=== PATIENT | male | born 1935 | race Caucasian/White ===

== ENCOUNTER 2017-09-22 09:12 | Emergency (ER) | payer OTHER, BC ==
[~2017-09-22] VITALS: Ht 175.3 cm; Wt 63.5 kg
--- NOTE | ~2017-09-22 | EKG ---
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: [facility] : 1935 Requested By: Malini Cisneros Order Number: [id number] MD: Van Taylor Measurements Intervals [place] Rate: 78 P: -36 NJ: 220 QRS: -33 QRSD: 112 T: 48 QT: 388 QTc: 442 Interpretive Statements Sinus rhythm Prolonged [place] interval Incomplete left bundle branch block Anterior Q waves, possibly due to ILBBB Compared to ECG 06/03/1999 11:05:39 First degree AV block now present Left bundle-branch block now present Q waves now present Sinus bradycardia no longer present Electronically Signed On 09-22-2017 16:31:48 CDT by Van Taylor [email or web address] <ELECTRONICALLY SIGNED> By: Van Taylor MD, [facility] 09/22/17 1631 0932 0932 Van Taylor MD, [facility] /EPI
[2017-09-22] MEDS ORDERED: ASPIR 8181 MG PO (09:22)
[2017-09-22] MEDS ORDERED: ACCUNEB SO1.25 MG/1 INH (09:22)
[2017-09-22] MEDS ORDERED: ATORVASTATIN CA40 MG PO (09:23)
[2017-09-22] MEDS ORDERED: TUMS PO (09:24)
[2017-09-22] MEDS ORDERED: CALCIUM 600 +1 EAC1 PO (09:24)
[2017-09-22] MEDS ORDERED: COLACE100 MG PO (09:25)
[2017-09-22] MEDS ORDERED: ADVAIR HFA 230M12 GM INH (09:25)
[2017-09-22] MEDS ORDERED: PRESERVISION T1 EACH PO (09:26)
[2017-09-22] MEDS ORDERED: CENTRUM SILVER1 EAC2 PO (09:26)
[2017-09-22] MEDS ORDERED: MIRALAX17 GM PO (09:27)
[2017-09-22] MEDS ORDERED: FISH OIL 1,001000 M2 PO (09:27)
[2017-09-22] MEDS ORDERED: QUINAPRIL HCL40 MG PO (09:28)
[2017-09-22 09:33] LABS: ABSOLUTE NEUTROPHILS 7.8 thou/uL (1.4-8.2); BASOPHILS 0.6 % (0.0-2.0); EOSINOPHILS 2.2 % (0.0-3.0); HEMATOCRIT 35.1 % (42.0-52.0); HEMOGLOBIN 11.6 gm/dL (14.0-18.0); LYMPHOCYTES 10.1 % (24.0-44.0); MCH 28.6 pg (26.0-34.0); MCHC 33.1 g/dL (28.0-37.0); MCV 86.3 fL (80.0-100.0); MONOCYTES 8.1 % (1.0-8.0); PLATELET COUNT 153 thou/uL (150-400); RBC 4.07 mil/uL (4.50-6.00); RDW 14.6 % (10.5-14.5); WBC 9.9 thou/uL (4.0-11.0)
[2017-09-22 09:40] LABS: ANION GAP 0 mmol/L (7-16); BUN 16 mg/dL (7-18); CALCIUM 9.2 mg/dL (8.5-10.1); CHLORIDE 106 mmol/L (98-107); CO2 31 mmol/L (21-32); CREATININE 0.8 mg/dL (0.7-1.3); GLUCOSE 91 mg/dL (74-106); SODIUM 137 mmol/L (136-145)
[2017-09-22 09:49] LABS: TROPONIN-I <0.06 ng/mL (<0.06)
[2017-09-22 11:15] VITALS: BP 110/56
== END 2017-09-22 11:17 | disposition home or self-care (01) ==
LOC: ER 09:12
PROVIDERS: Emergency Medicine
DX: R55 Syncope and collapse (principal); I25.2 Old myocardial infarction; Z91.02 Food additives allergy status

== ENCOUNTER → 2019-07-02 | Outpatient (CLI) | payer OTHER, BC ==
[~2019-07-02] MED LIST: ACCUNEB SO1.25 MG/1 INH; ADVAIR HFA 230M12 GM INH; ASPIR 8181 MG PO; ATORVASTATIN CA40 MG PO; CALCIUM 600 +1 EAC1 PO; CENTRUM SILVER1 EAC2 PO; COLACE100 MG PO; FISH OIL 1,001000 M2 PO; MIRALAX17 GM PO; PRESERVISION T1 EACH PO; QUINAPRIL HCL40 MG PO; TUMS PO
== END ==
LOC: SJCVCIMAG 10:46 → SJCVC 10:46
PROVIDERS: ATTEND Internal Medicine Cardiovascular Disease
DX: R94.31 Abnormal electrocardiogram [ECG] [EKG] (principal); I25.10 Atherosclerotic heart disease of native coronary artery without angina pectoris; I65.23 Occlusion and stenosis of bilateral carotid arteries; I10 Essential (primary) hypertension; E78.00 Pure hypercholesterolemia, unspecified; R55 Syncope and collapse; E78.5 Hyperlipidemia, unspecified; Z79.82 Long term (current) use of aspirin; Z79.899 Other long term (current) drug therapy; Z87.891 Personal history of nicotine dependence

== ENCOUNTER → 2020-02-04 | Outpatient (CLI) | payer OTHER, BC | LOC: SJCVC 10:27 | PROVIDERS: ATTEND Internal Medicine Cardiovascular Disease | DX: I25.10 Atherosclerotic heart disease of native coronary artery without angina pectoris (principal); R94.31 Abnormal electrocardiogram [ECG] [EKG]; I65.23 Occlusion and stenosis of bilateral carotid arteries; I10 Essential (primary) hypertension; E78.00 Pure hypercholesterolemia, unspecified; Z95.5 Presence of coronary angioplasty implant and graft; Z79.899 Other long term (current) drug therapy; Z87.891 Personal history of nicotine dependence ==

== ENCOUNTER → 2020-12-09 | Outpatient (CLI) | payer OTHER, BC | LOC: SJCVCIMAG 09:10 | PROVIDERS: ATTEND Internal Medicine Cardiovascular Disease | DX: R94.31 Abnormal electrocardiogram [ECG] [EKG] (principal); I49.1 Atrial premature depolarization; I65.23 Occlusion and stenosis of bilateral carotid arteries; I45.89 Other specified conduction disorders; I25.10 Atherosclerotic heart disease of native coronary artery without angina pectoris; I10 Essential (primary) hypertension; E78.00 Pure hypercholesterolemia, unspecified; Z87.891 Personal history of nicotine dependence; Z79.82 Long term (current) use of aspirin; Z79.899 Other long term (current) drug therapy; Z91.02 Food additives allergy status; Z91.09 Other allergy status, other than to drugs and biological substances; Z88.8 Allergy status to other drugs, medicaments and biological substances ==